=== PATIENT | male | born 2000 | race African-American/Black ===

== ENCOUNTER 2018-01-10 09:38 | Outpatient (CLI) | payer BC, OTHER ==
[2016-08-02 19:41] VITALS: BP 166/72
[2018-01-10 10:06] LABS: BASOPHILS % 0.6 (0.0-1.5); EOSINOPHILS % 1.8 % (0.0-6.8); MEAN CORPUSCULAR HEMOGLOBIN 28.6 pg (28.0-34.0); MEAN CORPUSCULAR VOLUME 86.4 fl (80.0-100.0); MONOCYTES % 4.3 % (0.0-11.0); NEUTROPHILS # 3.7 # k/uL (1.4-7.7)
[2018-01-10 10:29] LABS: eGFR (African) > 60; eGFR (Non-African) > 60
== END 2018-01-10 09:45 ==
LOC: LAB 09:38
PROVIDERS: ATTEND Nurse Practitioner Family
DX: R53.83 Other fatigue (principal); R63.5 Abnormal weight gain; R53.1 Weakness; Z79.899 Other long term (current) drug therapy; Z83.49 Family history of other endocrine, nutritional and metabolic diseases; Z82.49 Family history of ischemic heart disease and other diseases of the circulatory system
CPT/HCPCS: 36415; 80053; 80061; 81241; 82608; 82746; 83036; 83540; 83550; 84439; 84443; 85025; 85651; 86141